=== PATIENT | female | born 1955 | race American Indian/Alaskan Native ===

== ENCOUNTER 2017-08-01 20:03 | Observation (INO) | payer MEDICARE, MEDICAID, BC ==
[2017-08-01] MEDS ORDERED: Prochlorperazine 10 MG/2 ML SDV IVPUSH ONE (20:09)
[2017-08-01] MEDS ORDERED: Hydrocortisone Sodium Succinate 100 MG/2 ML SDV IVPUSH ONE (20:12)
[2017-08-01] MEDS ORDERED: Sodium Chloride 0.9% 1,000 ML IV SCH ×2 (22:15→23:06)
--- NOTE | 2017-08-01 22:45 | EDM.PDOC ---
ED HPI GENERAL MEDICAL PROBLEM - General Chief Complaint: Neurological Problem Stated Complaint: ILLNESS Time Seen by Provider: 08/01/17 20:08 Source of Information: Reports: Patient History Limitations: Reports: Physical Impairment - History of Present Illness INITIAL COMMENTS - FREE TEXT/NARRATIVE: This patient arrives by EMS complaining of nausea and vomiting. She has a history of vertigo. She said that it home she suddenly became nauseated and began vomiting. Initially she told me that she was not having a spinning sensation. She took 2 meclizine tablets and that didn't really seem to help. She was given IV Zofran by EMS and that also didn't seem to help. She also complained of left upper quadrant abdominal pain for about 3 weeks. It seems to come and go. She's not having it right now. In the past she took omeprazole for this. She did mention that a long time ago she was hospitalized for her severe anemia. - Related Data Allergies Allergy/AdvReac Type Severity Reaction Status Date / Time No Known Allergies Allergy Verified 11/30/14 23:09 Home Meds: Home Meds Folic Acid 1 tab PO DAILY 11/30/14 [History] Methotrexate/PF [Methotrexate 250 MG/10 ML Vial] 1 injection IM ASDIRECTED 11/30 [History] oxyCODONE HCl/Acetaminophen [Percocet 10-325 MG] 1 - 2 tab PO Q6H PRN 11/30/14 [ History] predniSONE 5 mg PO DAILY 11/30/14 [History] Past Medical History Musculoskeletal History: Reports: Back Pain, Chronic Neurological History: Reports: Vertigo - Past Surgical History GI Surgical History: Reports: Appendectomy Social & Family History - Tobacco Use Smoking Status *Q: Never Smoker - Alcohol Use Days Per Week of Alcohol Use: 0 - Recreational Drug Use Recreational Drug Use: No ED ROS GENERAL - Review of Systems Review Of Systems: ROS reveals no pertinent complaints other than HPI. ( Initially unable to obtain review of systems due to severe vomiting) ED EXAM, GENERAL - Physical Exam Exam: See Below Exam Limited By: No Limitations General Appearance: Alert, WD/WN, Severe Distress (This patient is having forceful very frequent dry heaves.) Eye Exam: Bilateral Eye: Normal Inspection, Nystagmus (There is no evidence of nystagmus) Ears: Normal TMs (No obvious bulging of the TMs. A little bit difficult to see due to some dried flaky cerumen) Nose: Normal Inspection Throat/Mouth: Normal Inspection, Normal Oropharynx Head: Atraumatic Neck: Normal Inspection Respiratory/Chest: No Respiratory Distress, Lungs Clear Cardiovascular: Regular Rate, Rhythm, No Murmur GI/Abdominal: Soft, Non-Tender Back Exam: Normal Inspection Extremities: Normal Inspection Neurological: Alert, Oriented, CN II-XII Intact, Normal Cognition, No Motor/ Sensory Deficits Psychiatric: Normal Affect Skin Exam: Warm, Dry, Intact Course - Vital Signs Last Recorded V/S: Last Vital Signs Temp 36.4 C 08/01/17 21:37 Pulse 67 08/01/17 21:37 Resp 16 08/01/17 21:37 BP 157/89 H 08/01/17 21:37 Pulse Ox 99 08/01/17 21:37 - Orders/Labs/Meds Orders: Active Orders 24 hr Category Date Time Status EKG Documentation Completion [RC] ASDIRECTED Care 08/01/17 20:09 Active Chest 1V Frontal [CR] Urgent Exams 08/01/17 20:13 Taken CULTURE BLOOD [BC] Urgent Lab 08/01/17 20:20 Received CULTURE BLOOD [BC] Urgent Lab 08/01/17 20:32 Received Sodium Chloride 0.9% [Normal Saline] 1,000 ml Med 08/01/17 22:15 Active IV ASDIRECTED Blood Culture x2 Reflex Set [OM.PC] Urgent Oth 08/01/17 20:13 Ordered EKG 12 Lead [EK] Urgent Ther 08/01/17 20:09 Ordered Medication Orders Sodium Chloride (Normal Saline) 1,000 mls @ 999 mls/hr IV ASDIRECTED [facility] Last Admin: 08/01/17 22:17 Dose: 999 mls/hr Labs: Laboratory Tests 08/01/17 08/01/17 08/01/17 Range/Units 20:21 20:21 20:21 WBC 6.7 (4.5-11.0) K/uL RBC 4.47 (3.30-5.50) M/uL Hgb 12.8 (12.0-15.0) g/dL Hct 38.5 (36.0-48.0) % MCV 86 (80-98) fL MCH 29 (27-31) pg MCHC 33 (32-36) % Plt Count 325 (150-400) K/uL Neut % (Auto) 65 (36-66) % Lymph % (Auto) 28 (24-44) % [place] % (Auto) 6 (2-6) % Eos % (Auto) 1 L (2-4) % Baso % (Auto) 0 (0-1) % Sodium 140 (140-148) mmol/L Potassium 3.3 L (3.6-5.2) mmol/L Chloride 104 (100-108) mmol/L Carbon Dioxide 23 (21-32) mmol/L Anion Gap 16.3 H (5.0-14.0) mmol/L BUN 16 (7-18) mg/dL Creatinine 0.7 (0.6-1.0) mg/dL Est Cr Clr Drug Dosing TNP Estimated GFR (MDRD) > 60 (>60) Glucose 133 H (74-106) mg/dL Lactic Acid 3.8 H (0.4-2.0) mmol/L Calcium 8.6 (8.5-10.1) mg/dL Total Bilirubin 0.3 (0.2-1.0) mg/dL AST 20 (15-37) U/L ALT 17 (12-78) U/L Alkaline Phosphatase 88 (46-116) U/L Troponin I (0.000-0.056) ng/mL Total Protein 7.4 (6.4-8.2) g/dL Albumin 3.3 L (3.4-5.0) g/dL Globulin 4.1 H (2.3-3.5) g/dL Albumin/Globulin Ratio 0.8 L (1.2-2.2) Amylase (25-115) U/L Lipase (73-393) U/L Urine Color Urine Appearance Urine pH (4.5-8.0) Ur Specific [place] (1.008-1.030) Urine Protein (NEGATIVE) mg/dL Urine Glucose (UA) (NEGATIVE) mg/dL Urine Ketones (NEGATIVE) mg/dL Urine Occult Blood (NEGATIVE) Urine Nitrite (NEGATIVE) Urine Bilirubin (NEGATIVE) Urine Urobilinogen (NORMAL) mg/dL Ur Leukocyte Esterase (NEGATIVE) Urine RBC (0-5) Urine WBC (0-5) Ur Epithelial Cells Amorphous Sediment Urine Bacteria Urine Mucus 08/01/17 08/01/17 08/01/17 Range/Units 20:21 21:01 22:07 WBC (4.5-11.0) K/uL RBC (3.30-5.50) M/uL Hgb (12.0-15.0) g/dL Hct (36.0-48.0) % MCV (80-98) fL MCH (27-31) pg MCHC (32-36) % Plt Count (150-400) K/uL Neut % (Auto) (36-66) % Lymph % (Auto) (24-44) % [place] % (Auto) (2-6) % Eos % (Auto) (2-4) % Baso % (Auto) (0-1) % Sodium (140-148) mmol/L Potassium (3.6-5.2) mmol/L Chloride (100-108) mmol/L Carbon Dioxide (21-32) mmol/L Anion Gap (5.0-14.0) mmol/L BUN (7-18) mg/dL Creatinine (0.6-1.0) mg/dL Est Cr Clr Drug Dosing Estimated GFR (MDRD) (>60) Glucose (74-106) mg/dL Lactic Acid (0.4-2.0) mmol/L Calcium (8.5-10.1) mg/dL Total Bilirubin (0.2-1.0) mg/dL AST (15-37) U/L ALT (12-78) U/L Alkaline Phosphatase (46-116) U/L Troponin I < 0.017 (0.000-0.056) ng/mL Total Protein (6.4-8.2) g/dL Albumin (3.4-5.0) g/dL Globulin (2.3-3.5) g/dL Albumin/Globulin Ratio (1.2-2.2) Amylase (25-115) U/L Lipase 144 (73-393) U/L Urine Color Yellow Urine Appearance Clear Urine pH 7.0 (4.5-8.0) Ur Specific [place] 1.010 (1.008-1.030) Urine Protein Negative (NEGATIVE) mg/dL Urine Glucose (UA) Normal (NEGATIVE) mg/dL Urine Ketones 15 H (NEGATIVE) mg/dL Urine Occult Blood Negative (NEGATIVE) Urine Nitrite Negative (NEGATIVE) Urine Bilirubin Negative (NEGATIVE) Urine Urobilinogen Normal (NORMAL) mg/dL Ur Leukocyte Esterase Negative (NEGATIVE) Urine RBC Not seen (0-5) Urine WBC 0-5 (0-5) Ur Epithelial Cells Few Amorphous Sediment Not seen Urine Bacteria Few Urine Mucus Rare 08/01/17 Range/Units 22:08 WBC (4.5-11.0) K/uL RBC (3.30-5.50) M/uL Hgb (12.0-15.0) g/dL Hct (36.0-48.0) % MCV (80-98) fL MCH (27-31) pg MCHC (32-36) % Plt Count (150-400) K/uL Neut % (Auto) (36-66) % Lymph % (Auto) (24-44) % [place] % (Auto) (2-6) % Eos % (Auto) (2-4) % Baso % (Auto) (0-1) % Sodium (140-148) mmol/L Potassium (3.6-5.2) mmol/L Chloride (100-108) mmol/L Carbon Dioxide (21-32) mmol/L Anion Gap (5.0-14.0) mmol/L BUN (7-18) mg/dL Creatinine (0.6-1.0) mg/dL Est Cr Clr Drug Dosing Estimated GFR (MDRD) (>60) Glucose (74-106) mg/dL Lactic Acid (0.4-2.0) mmol/L Calcium (8.5-10.1) mg/dL Total Bilirubin (0.2-1.0) mg/dL AST (15-37) U/L ALT (12-78) U/L Alkaline Phosphatase (46-116) U/L Troponin I (0.000-0.056) ng/mL Total Protein (6.4-8.2) g/dL Albumin (3.4-5.0) g/dL Globulin (2.3-3.5) g/dL Albumin/Globulin Ratio (1.2-2.2) Amylase 49 (25-115) U/L Lipase (73-393) U/L Urine Color Urine Appearance Urine pH (4.5-8.0) Ur Specific [place] (1.008-1.030) Urine Protein (NEGATIVE) mg/dL Urine Glucose (UA) (NEGATIVE) mg/dL Urine Ketones (NEGATIVE) mg/dL Urine Occult Blood (NEGATIVE) Urine Nitrite (NEGATIVE) Urine Bilirubin (NEGATIVE) Urine Urobilinogen (NORMAL) mg/dL Ur Leukocyte Esterase (NEGATIVE) Urine RBC (0-5) Urine WBC (0-5) Ur Epithelial Cells Amorphous Sediment Urine Bacteria Urine Mucus Meds: Medications Generic Name Dose Route Start Last Admin Trade Name Freq PRN Reason Stop Dose Admin Sodium Chloride 1,000 mls @ 999 mls/hr 08/01/17 22:15 08/01/17 22:17 Normal Saline IV 999 mls/hr ASDIRECTED ROB Administration Discontinued Medications Generic Name Dose Route Start Last Admin Trade Name Freq PRN Reason Stop Dose Admin Hydrocortisone Sodium Succinate 100 mg 08/01/17 20:12 08/01/17 20:30 Solu-Cortef IVPUSH 08/01/17 20:13 100 mg ONETIME ONE Administration Prochlorperazine Edisylate 5 mg 08/01/17 20:09 08/01/17 20:30 Compazine IVPUSH 08/01/17 20:10 5 mg ONETIME ONE Administration - Radiology Interpretation Free Text/Narrative:: Chest x-ray is suspicious for right lower lobe pneumonia and it is been sent to radiology for an over read - Re-Assessments/Exams Free Text/Narrative Re-Assessment/Exam: 08/01/17 22:44 This patient arrived with an IV established. She had already been given Zofran that didn't help so I gave Compazine 5 mg IV and this did give her some relief. Free Text/Narrative Re-Assessment/Exam: 08/01/17 22:45 this patient feels much better however labs give some indication of possible sepsis with a elevated lactic acid. Discussed with Dr. Benitez and this patient will be admitted for observation Bernie Escamilla is here in the emergency department to admit her Departure - Departure Time of Disposition: 22:46 Disposition: Admitted As Inpatient 68 Condition: Fair Clinical Impression: Vomiting, Sepsis - Discharge Information Referrals: PCP,None [Primary Care Provider] - - My Orders Last 24 Hours: My Active Orders 08/01/17 20:09 EKG Documentation Completion [RC] ASDIRECTED EKG 12 Lead [EK] Urgent 08/01/17 20:13 Chest 1V Frontal [CR] Urgent Blood Culture x2 Reflex Set [OM.PC] Urgent 08/01/17 20:20 CULTURE BLOOD [BC] Urgent 08/01/17 20:32 CULTURE BLOOD [BC] Urgent - Assessment/Plan Last 24 Hours: My Active Orders 08/01/17 20:09 EKG Documentation Completion [RC] ASDIRECTED EKG 12 Lead [EK] Urgent 08/01/17 20:13 Chest 1V Frontal [CR] Urgent Blood Culture x2 Reflex Set [OM.PC] Urgent 08/01/17 20:20 CULTURE BLOOD [BC] Urgent 08/01/17 20:32 CULTURE BLOOD [BC] Urgent
[2017-08-01] MEDS ORDERED: Zolpidem 5 MG Tab PO PRN (23:06)
[2017-08-01] MEDS ORDERED: Azithromycin 500 MG in Sodium Chloride 0.9% 250 ML IV ONE (23:06)
[2017-08-01] MEDS ORDERED: Docusate Sodium 100 MG Cap PO PRN (23:06)
[2017-08-01] MEDS ORDERED: Bisacodyl 5 MG Tab PO PRN (23:06)
[2017-08-01] MEDS ORDERED: Morphine 2 MG/ML Syringe IVPUSH PRN (23:06)
[2017-08-01] MEDS ORDERED: Albuterol/Ipratropium 3.0-0.5 MG/3 ML Neb Soln NEB PRN (23:06)
[2017-08-01] MEDS ORDERED: Ondansetron 4 MG Tab.DIS PO PRN (23:06)
[2017-08-01] MEDS ORDERED: LORazepam 2 MG/ML MDV IV PRN (23:06)
[2017-08-01] MEDS ORDERED: Albuterol 0.083% 2.5 MG/3 ML Neb Soln NEB PRN (23:06)
[2017-08-01] MEDS ORDERED: Acetaminophen 325 MG Tab PO PRN (23:06)
--- NOTE | 2017-08-01 23:33 | PCM.HP ---
H&P History of Present Illness - General Admit Problem/Dx: Admission Diagnosis/Problem Admission Diagnosis/Problem Sepsis Source of Information: Patient, RN Notes Reviewed - History of Present Illness Initial Comments - Free Text/Narative: This patient arrives by EMS complaining of nausea and vomiting. She has a history of vertigo. She said that it home she suddenly became nauseated and began vomiting. Initially she told me that she was not having a spinning sensation. She took 2 meclizine tablets and that didn't really seem to help. She was given IV Zofran by EMS and that also didn't seem to help. She also complained of left upper quadrant abdominal pain for about 3 weeks. It seems to come and go. She's not having it right now. In the past she took omeprazole for this. She did mention that a long time ago she was hospitalized for her severe anemia. Onset of Symptoms: Reports: Sudden Duration of Symptoms: Reports: Hour(s): Location: Reports: Generalized Severity: Moderate Improves with: Reports: None Worsens with: Reports: None Associated Symptoms: Reports: Nausea/Vomiting - Related Data Allergies/Adverse Reactions: Allergies Allergy/AdvReac Type Severity Reaction Status Date / Time No Known Allergies Allergy Verified 11/30/14 23:09 Home Medications: Home Meds oxyCODONE HCl/Acetaminophen [Percocet 10-325 MG] 1 - 2 tab PO Q6H PRN 11/30/14 [ History] predniSONE 5 mg PO DAILY 11/30/14 [History] Past Medical History Musculoskeletal History: Reports: Back Pain, Chronic, Other (See Below) Other Musculoskeletal History: spinal fusion a few years ago Neurological History: Reports: Vertigo - Infectious Disease History Infectious Disease History: Reports: Chicken Pox - Past Surgical History GI Surgical History: Reports: Appendectomy Social & Family History - Family History Family Medical History: Noncontributory - Tobacco Use Smoking Status *Q: Former Smoker Years of Tobacco use: 1 Used Tobacco, but Quit: Yes Month Tobacco Last Used: 40 years ago Second Hand Smoke Exposure: No - Caffeine Use Caffeine Use: Reports: None - Alcohol Use Days Per Week of Alcohol Use: 0 - Recreational Drug Use Recreational Drug Use: No - Living Situation & Occupation Living situation: Reports: (lives with in [place], [place]. , have 2 grown children, raising 5 Grandchildren and 1 Great-grandchild.) H&P Review of Systems - Review of Systems: Review Of Systems: See Below General: Reports: Other (had active vomiting during ER evaluation, resolved prior to admission to hospital) HEENT: Reports: No Symptoms Pulmonary: Reports: No Symptoms Cardiovascular: Reports: No Symptoms Gastrointestinal: Reports: No Symptoms Genitourinary: Reports: No Symptoms Musculoskeletal: Reports: Other (chronic pain from Rheumatoid Arthritis) Skin: Reports: No Symptoms Psychiatric: Reports: No Symptoms Neurological: Reports: No Symptoms Hematologic/Lymphatic: Reports: No Symptoms Immunologic: Reports: No Symptoms Exam - Exam Exam: See Below - Vital Signs Vital Signs: Last Vital Signs Temp 36.4 C 08/01/17 23:09 Pulse 63 08/01/17 23:09 Resp 16 08/01/17 23:09 BP 137/58 L 08/01/17 23:09 Pulse Ox 91 L 08/01/17 23:09 Weight: 61.689 kg - Exam General: Alert, Oriented, 4 HEENT: PERRLA, Hearing Intact, Mucosa Moist & [place], Nares Patent, Normal Nasal Septum, Posterior Pharynx Clear, Conjunctiva Clear, EOMI, EACs Clear, TMs Clear Neck: Supple, Trachea Midline, 2 Lungs: Clear to Auscultation, Normal Respiratory Effort Cardiovascular: Regular Rate, Regular Rhythm GI/Abdominal Exam: Normal Bowel Sounds, Soft, Non-Tender, No Organomegaly, No Distention, No Abnormal Bruit, No Mass, Pelvis Stable (Female) Exam: Deferred Rectal (Female) Exam: Deferred Back Exam: Normal Inspection, Full Range of Motion, NT Extremities: Normal Range of Motion, Non-Tender, No Pedal Edema, Normal Capillary Refill, Other (finger deformities secondary to RA) Peripheral Pulses: 2+: Radial (L), Radial (R) Skin: Warm, Dry, Intact Neurological: Cranial Nerves Intact, Reflexes Equal Bilateral Neuro Extensive - Mental Status: Alert, Oriented x3, Normal Mood/Affect, Normal Cognition Neuro Extensive - Motor, Sensory, Reflexes: CN II-XII Intact, Normal Gait, Normal Reflexes Psychiatric: Alert, Normal Affect, Normal Mood - Patient Data Lab Results Last 24 hrs: Laboratory Results - last 24 hr 08/01/17 Range/Units 23:06 C-Reactive Protein 0.58 H (0.0-0.3) mg/dL Result Diagrams: 08/01/17 20:21 08/01/17 20:21 *Q Meaningful Use (ADM) - VTE *Q VTE Criteria *Q: - Stroke *Q Stroke Criteria *Q: - AMI *Q AMI Criteria *Q: - Problem List (1) Sepsis SNOMED Code(s): 87076502 ICD Code: A41.9 - SEPSIS, UNSPECIFIED ORGANISM Status: Acute Priority: High Current Visit: Yes Qualifiers: Sepsis type: sepsis due to unspecified organism Qualified Code(s): A41.9 - Sepsis, unspecified organism (2) Hypokalemia SNOMED Code(s): 37569060 ICD Code: E87.6 - HYPOKALEMIA Status: Acute Priority: Medium Current Visit: Yes Problem List Initiated/Reviewed/Updated: Yes Orders Last 24hrs: Active Orders 24 hr Category Date Time Status Patient Status [ADT] Routine ADT 08/01/17 23:06 Active Ambulate [RC] QID Care 08/01/17 23:06 Active Intake and Output [RC] QSHIFT Care 08/01/17 23:06 Active May Shower [RC] ASDIRECTED Care 08/01/17 23:06 Active Oxygen Therapy [RC] PRN Care 08/01/17 23:06 Active RT Aerosol Therapy [RC] ASDIRECTED Care 08/01/17 23:06 Active Up ad [place]anca [RC] ASDIRECTED Care 08/01/17 23:06 Active VTE/DVT Education [RC] Per Unit Routine Care 08/01/17 23:06 Active Vital Signs [RC] Q4H Care 08/01/17 23:06 Active Regular Diet [DIET] Diet 08/01/17 Breakfast Active BASIC METABOLIC PANEL,BMP [CHEM] AM Lab 08/02/17 05:11 Ordered C-REACTIVE PROTEIN [CHEM] AM Lab 08/02/17 05:11 Ordered CBC WITH AUTO DIFF [HEME] AM Lab 08/02/17 05:11 Ordered LACTIC ACID [CHEM] Stat Lab 08/02/17 02:10 Ordered Acetaminophen [Tylenol] Med 08/01/17 23:06 Active 650 mg PO Q4H PRN Acetaminophen/oxyCODONE [Percocet 325-10 MG] Med 08/01/17 23:06 Active 1 - 2 tab PO Q6H PRN Albuterol [Proventil Neb Soln] Med 08/01/17 23:06 Active 2.5 mg NEB Q4H PRN Albuterol/Ipratropium [DuoNeb 3.0-0.5 MG/3 ML] Med 08/01/17 23:06 Active 3 ml NEB QID PRN Azithromycin [Zithromax] 500 mg Med 08/01/17 23:06 Active Sodium Chloride 0.9% [Normal Saline] 250 ml IV ONETIME Bisacodyl [Dulcolax] Med 08/01/17 23:06 Active 5 mg PO DAILY PRN Docusate Sodium [Colace] Med 08/01/17 23:06 Active 100 mg PO BID PRN LORazepam [Ativan] Med 08/01/17 23:06 Active 1 mg IV Q6H PRN Morphine Med 08/01/17 23:06 Active 2 mg IVPUSH Q2H PRN Ondansetron [Zofran ODT] Med 08/01/17 23:06 Active 4 mg PO Q6H PRN Pantoprazole [ProTONIX IV] Med 08/02/17 09:00 Active 40 mg IV DAILY Sodium Chloride 0.9% [Normal Saline] 1,000 ml Med 08/01/17 23:06 Active IV ASDIRECTED Sodium Chloride 0.9% [Normal Saline] 1,000 ml Med 08/01/17 23:06 Active IV ASDIRECTED Zolpidem [Ambien] Med 08/01/17 23:06 Active 5 mg PO BEDTIME PRN cefTRIAXone [Rocephin] 1 gm Med 08/02/17 00:00 Active Sodium Chloride 0.9% [Normal Saline] 50 ml IV Q24H predniSONE Med 08/02/17 09:00 Active 5 mg PO DAILY Blood Culture x2 Reflex Set [OM.PC] Urgent Oth 08/01/17 23:06 Ordered Resuscitation Status Routine Resus Stat 08/01/17 22:33 Ordered Medication Orders Acetaminophen (Tylenol) 650 mg PO Q4H PRN PRN Reason: Pain (Mild 1-3)/fever Albuterol (Proventil Neb Soln) 2.5 mg NEB Q4H PRN PRN Reason: Shortness Of Breath/wheezing Albuterol/Ipratropium (Duoneb 3.0-0.5 Mg/3 Ml) 3 ml NEB QID PRN PRN Reason: Shortness Of Breath/wheezing Bisacodyl (Dulcolax) 5 mg PO DAILY PRN PRN Reason: Constipation Docusate Sodium (Colace) 100 mg PO BID PRN PRN Reason: Constipation Sodium Chloride (Normal Saline) 1,000 mls @ 999 mls/hr IV ASDIRECTED [facility] Last Admin: 08/01/17 22:17 Dose: 999 mls/hr Azithromycin 500 mg/ Sodium (Chloride) 250 mls @ 250 mls/hr IV ONETIME ONE Stop: 08/02/17 00:05 Ceftriaxone Sodium 1 gm/ (Sodium Chloride) 50 mls @ 100 mls/hr IV Q24H ROB Sodium Chloride (Normal Saline) 1,000 mls @ 999 mls/hr IV ASDIRECTED [facility] Stop: 08/02/17 00:07 Sodium Chloride (Normal Saline) 1,000 mls @ 125 mls/hr IV ASDIRECTED [facility] Lorazepam (Ativan) 1 mg IV Q6H PRN PRN Reason: Nausea/Vomiting Morphine Sulfate (Morphine) 2 mg IVPUSH Q2H PRN PRN Reason: Pain (severe 7-10) Ondansetron HCl (Zofran Odt) 4 mg PO Q6H PRN PRN Reason: Nausea able to take PO Oxycodone/Acetaminophen (Percocet 325-10 Mg) 1 - 2 tab PO Q6H PRN PRN Reason: Pain Pantoprazole Sodium (Protonix Iv) 40 mg IV DAILY [facility] Prednisone (Prednisone) 5 mg PO DAILY [facility] Zolpidem Tartrate (Ambien) 5 mg PO BEDTIME PRN PRN Reason: Sleep Assessment/Plan Comment:: ASSESSMENT / PLAN - This patient arrives by EMS complaining of nausea and vomiting. She has a history of vertigo. She said that it home she suddenly became nauseated and began vomiting. Initially she told me that she was not having a spinning sensation. She took 2 meclizine tablets and that didn't really seem to help. She was given IV Zofran by EMS and that also didn't seem to help. She also complained of left upper quadrant abdominal pain for about 3 weeks. It seems to come and go. She's not having it right now. In the past she took omeprazole for this. She did mention that a long time ago she was hospitalized for her severe anemia. ER course: Chest x-ray is suspicious for right lower lobe pneumonia and it is been sent to radiology for an over read IV fluids Normal Saline. given Zofran that didn't help, then Compazine 5 mg IV and this did give her some relief. 08/01/17 22:45 this patient feels much better however labs give some indication of possible sepsis with a elevated lactic acid. Discussed with Dr. Benitez and this patient will be admitted for observation Bernie Gupta is here in the emergency department to admit her -Admit to [address] [place] [address] for further monitoring Plan Sepsis, probable Pneumonia -IV Fluids for rehydration NS at 125 mL per hour -IV Antibiotic; Rocephin 1 gram IV every 24 hours, IV Zithromax 500 mg every 24 hours -albuterol nebulizer every 4 hours as needed for wheezing and cough -Duo neb nebulize every 6 hours -Advise to notify nurses of any chest pain or other symptoms -blood cultures x2 pending -And a.m. labs: CBC, BMP, lactic acid Hypokalemia -Potassium 20 meq IV -Potassium 20 meq in am Maintenance issues -Orders home meds: -Nutrition: regular diet -Severino catheter not indicated at this time -DVT: SCD -PPI; IV Protonix 40mg daily CODE STATUS: Full Admission status: Admit to Observation -I expect this patient to stay less than 24 hours, not to exceed 96 hours for evaluation and management of this problem. Disposition: home Primary care provider: Dr. Brown Hospitalist: Dr. Benitez
[2017-08-01] MEDS: Acetaminophen/oxyCODONE 325-10 MG Tab PO PRN (23:40)
[2017-08-01] MEDS ORDERED: Potassium Chloride 20 MEQ in Premix Bag 1 BAG IV ONE (23:58)
[2017-08-02] MEDS ORDERED: cefTRIAXone 1 GM in Sodium Chloride 0.9% 50 ML IV SCH ×2
[2017-08-02] MEDS: Sodium Chloride 0.9% 1,000 ML IV SCH ×2 (02:16→10:41)
[2017-08-02] MEDS: Acetaminophen/oxyCODONE 325-10 MG Tab PO PRN (06:11)
[2017-08-02 07:51] VITALS: BP 136/50
[2017-08-02] MEDS ORDERED: Potassium Chloride 20 MEQ Tab.ER PO SCH (09:00)
[2017-08-02] MEDS ORDERED: Pantoprazole 40 MG Vial IV SCH (09:00)
[2017-08-02] MEDS ORDERED: predniSONE 5 MG Tab PO SCH (09:00)
--- NOTE | 2017-08-02 11:12 | PCM.DCSUM1 ---
Discharge Summary - Hospital Course Brief History: 62-year-old female with history of vertigo who presented withvomiting and shortness of breath after an episode of vertigo. She is admitted for observation and hydration with an elevated lactic acid level. - Discharge Data Discharge Date: 08/02/17 Discharge Disposition: Home, Self-Care 01 Condition: Good - Discharge Diagnosis/Problem(s) (1) BPPV (benign paroxysmal positional vertigo) SNOMED Code(s): 002946830 ICD Code: H81.10 - BENIGN PAROXYSMAL VERTIGO, UNSPECIFIED EAR Status: Acute Current Visit: Yes Qualifiers: Laterality: unspecified laterality Qualified Code(s): H81.10 - Benign paroxysmal vertigo, unspecified ear (2) Vomiting SNOMED Code(s): 320925260 ICD Code: R11.10 - VOMITING, UNSPECIFIED Status: Acute Current Visit: Yes Qualifiers: Vomiting type: unspecified Vomiting Intractability: non-intractable Nausea presence: with nausea Qualified Code(s): R11.2 - Nausea with vomiting, unspecified - Patient Summary/Data Hospital Course: Alona presented last night with nausea and vomiting as well as shortness of breath. Symptoms started after what sounds like an episode of vertigo. She felt better upon arrival to the emergency room but was found to have an elevated lactic acid. She was admitted for hydration and observation. Overnight she felt well and did not have any vomiting or vertigo. The morning after admission she feels nearly back to her usual self other than mild fatigue. She does not have nausea and tolerated breakfast. Lactic acid level has normalized. She did mention some concerns about a mass on her left chest that this is likely a lipoma. It has been worked up previously and no concern was found. I did encourage her to check with the primary care doctor if she has additional concerns and a repeat ultrasound could be considered. She feels well and would like to go home at this time. I believe she is safe for outpatient management. I encouraged her to do her best to stay hydrated and continue her meclizine as needed if she has episodes of vertigo. She will follow-up if symptoms do not continue to get better or they get worse. - Patient Instructions Diet: Regular Diet as Tolerated Activity: As Tolerated Showering/Bathing: May Shower Notify Provider of: Fever, Increased Pain, Nausea and/or Vomiting Other/Special Instructions: 1. You were in the hospital for observation after an episode of vomiting and abnormal blood test in the emergency room (lactic acid). Your lactic acid level has normalized with hydration. I suspect the elevated level was a result of dehydration caused by your significant vomiting which has resolved. Continue your usual management for vertigo as previously prescribed. 2. Continue your usual medications as previously prescribed. 3. I suspect the subcutaneous mass on left chest is a lipoma. You could consider having this further evaluated by her primary care physician with a repeat ultrasound test. 4. Seek medical attention if you have fever greater than 101, persistent vomiting or if you develop chest pain/pressure or shortness of breath. - Discharge Plan Home Medications: Home Meds oxyCODONE HCl/Acetaminophen [Percocet 10-325 MG] 1 - 2 tab PO Q6H PRN 11/30/14 [ History] predniSONE 5 mg PO DAILY 11/30/14 [History] Patient Handouts: Vertigo, [id number], Sepsis, Adult, Rehydration, Adult Referrals: PCP,None [Primary Care Provider] - (f/u with your primary care doctor if symptoms do not continue to improve) - Discharge Summary/Plan Comment DC Time >30 min.: No (25) - Patient Data Vitals - Most Recent: Last Vital Signs Temp 36.4 C 08/02/17 07:50 Pulse 72 08/02/17 07:50 Resp 16 08/02/17 07:50 BP 136/50 L 08/02/17 07:50 Pulse Ox 96 08/02/17 07:50 Weight - Most Recent: 61.689 kg I&O - Last 24 hours: Intake & Output 08/01/17 08/02/17 08/02/17 22:59 06:59 14:59 Intake Total 1761 Output Total 800 Balance 961 Lab Results - Last 24 hrs: Laboratory Results - last 24 hr 08/01/17 08/02/17 08/02/17 Range/Units 23:06 02:13 02:13 WBC 5.6 (4.5-11.0) K/uL RBC 4.14 (3.30-5.50) M/uL Hgb 11.7 L (12.0-15.0) g/dL Hct 36.1 (36.0-48.0) % MCV 87 (80-98) fL MCH 28 (27-31) pg MCHC 32 (32-36) % Plt Count 276 (150-400) K/uL Neut % (Auto) 84 H (36-66) % Lymph % (Auto) 13 L (24-44) % [place] % (Auto) 2 (2-6) % Eos % (Auto) 0 L (2-4) % Baso % (Auto) 0 (0-1) % Sodium (140-148) mmol/L Potassium (3.6-5.2) mmol/L Chloride (100-108) mmol/L Carbon Dioxide (21-32) mmol/L Anion Gap (5.0-14.0) mmol/L BUN (7-18) mg/dL Creatinine (0.6-1.0) mg/dL Est Cr Clr Drug Dosing mL/min Estimated GFR (MDRD) (>60) Glucose (74-106) mg/dL Lactic Acid 0.9 (0.4-2.0) mmol/L Calcium (8.5-10.1) mg/dL C-Reactive Protein 0.58 H (0.0-0.3) mg/dL 08/02/17 Range/Units 02:13 WBC (4.5-11.0) K/uL RBC (3.30-5.50) M/uL Hgb (12.0-15.0) g/dL Hct (36.0-48.0) % MCV (80-98) fL MCH (27-31) pg MCHC (32-36) % Plt Count (150-400) K/uL Neut % (Auto) (36-66) % Lymph % (Auto) (24-44) % [place] % (Auto) (2-6) % Eos % (Auto) (2-4) % Baso % (Auto) (0-1) % Sodium 144 (140-148) mmol/L Potassium 3.8 (3.6-5.2) mmol/L Chloride 111 H (100-108) mmol/L Carbon Dioxide 27 (21-32) mmol/L Anion Gap 9.8 (5.0-14.0) mmol/L BUN 10 (7-18) mg/dL Creatinine 0.6 (0.6-1.0) mg/dL Est Cr Clr Drug Dosing 96.96 mL/min Estimated GFR (MDRD) > 60 (>60) Glucose 134 H (74-106) mg/dL Lactic Acid (0.4-2.0) mmol/L Calcium 8.0 L (8.5-10.1) mg/dL C-Reactive Protein 0.54 H (0.0-0.3) mg/dL Med Orders - Current: Current Medications Acetaminophen (Tylenol) 650 mg PO Q4H PRN PRN Reason: Pain (Mild 1-3)/fever Albuterol (Proventil Neb Soln) 2.5 mg NEB Q4H PRN PRN Reason: Shortness Of Breath/wheezing Albuterol/Ipratropium (Duoneb 3.0-0.5 Mg/3 Ml) 3 ml NEB QID PRN PRN Reason: Shortness Of Breath/wheezing Bisacodyl (Dulcolax) 5 mg PO DAILY PRN PRN Reason: Constipation Docusate Sodium (Colace) 100 mg PO BID PRN PRN Reason: Constipation Ceftriaxone Sodium 1 gm/ (Sodium Chloride) 50 mls @ 100 mls/hr IV Q24H [facility] Last Admin: 08/02/17 00:39 Dose: 100 mls/hr Sodium Chloride (Normal Saline) 1,000 mls @ 125 mls/hr IV ASDIRECTED [facility] Last Admin: 08/02/17 10:41 Dose: 125 mls/hr Lorazepam (Ativan) 1 mg IV Q6H PRN PRN Reason: Nausea/Vomiting Morphine Sulfate (Morphine) 2 mg IVPUSH Q2H PRN PRN Reason: Pain (severe 7-10) Ondansetron HCl (Zofran Odt) 4 mg PO Q6H PRN PRN Reason: Nausea able to take PO Oxycodone/Acetaminophen (Percocet 325-10 Mg) 1 - 2 tab PO Q6H PRN PRN Reason: Pain Last Admin: 08/02/17 06:11 Dose: 2 tab Pantoprazole Sodium (Protonix Iv) 40 mg IV DAILY [facility] Last Admin: 08/02/17 09:18 Dose: 40 mg Potassium Chloride (Klor-Con M20) 20 meq PO DAILY [facility] Last Admin: 08/02/17 09:17 Dose: 20 meq Prednisone (Prednisone) 5 mg PO DAILY [facility] Last Admin: 08/02/17 09:17 Dose: 5 mg Zolpidem Tartrate (Ambien) 5 mg PO BEDTIME PRN PRN Reason: Sleep Discontinued Medications Hydrocortisone Sodium Succinate (Solu-Cortef) 100 mg IVPUSH ONETIME ONE Stop: 08/01/17 20:13 Last Admin: 08/01/17 20:30 Dose: 100 mg Sodium Chloride (Normal Saline) 1,000 mls @ 999 mls/hr IV ASDIRECTED [facility] Last Infusion: 08/01/17 23:18 Dose: Infused Azithromycin 500 mg/ Sodium (Chloride) 250 mls @ 250 mls/hr IV ONETIME ONE Stop: 08/02/17 00:05 Last Admin: 08/01/17 23:37 Dose: 250 mls/hr Sodium Chloride (Normal Saline) 1,000 mls @ 999 mls/hr IV ASDIRECTED [facility] Stop: 08/02/17 00:07 Last Admin: 08/01/17 23:42 Dose: 999 mls/hr Potassium Chloride 20 meq/ (Premix) 100 mls @ 50 mls/hr IV ONETIME ONE Stop: 08/02/17 01:57 Last Admin: 08/02/17 02:15 Dose: 50 mls/hr Lidocaine HCl (Xylocaine-Mpf 1%) Confirm Administered Dose 5 ml .ROUTE .STK-MED ONE Stop: 08/02/17 02:08 Last Admin: 08/02/17 02:16 Dose: 1 ml Prochlorperazine Edisylate (Compazine) 5 mg IVPUSH ONETIME ONE Stop: 08/01/17 20:10 Last Admin: 08/01/17 20:30 Dose: 5 mg - Exam Quality Assessment: Denies: Supplemental Oxygen General: Reports: Alert, Oriented, Cooperative, No Acute Distress Neck: Reports: Supple Lungs: Reports: Normal Respiratory Effort Skin: Reports: Warm, Dry, Other (soft 2 cm slightly rubbery mobile mass left upper medial chest. There is no tenderness or induration) Psy/Mental Status: Reports: Alert, Normal Affect *Q Meaningful Use (DIS) - VTE *Q VTE Criteria *Q: - Stroke *Q Stroke Criteria *Q: - AMI *Q AMI Criteria *Q:
== END 2017-08-02 12:10 | disposition home or self-care (01) ==
LOC: JP.ED 20:03 → JP.MS 22:29
PROVIDERS: ADMIT Internal Medicine; ATTEND Internal Medicine
DX: H81.10 Benign paroxysmal vertigo, unspecified ear (principal); R11.2 Nausea with vomiting, unspecified; A41.9 Sepsis, unspecified organism; E87.6 Hypokalemia; Z79.899 Other long term (current) drug therapy; Z90.49 Acquired absence of other specified parts of digestive tract; Z87.891 Personal history of nicotine dependence
CPT/HCPCS: 36415; 71010; 80048; 80053; 81001; 82150; 83605; 83690; 84484; 85025; 86140; 87040; 87804; 93005; 96361; 96365; 96367; 96375; 99285; A9270; C9113; G0378; J0456; J0696; J0780; J1720; J3480; J7040; J7050; 93010; 96374

== ENCOUNTER 2022-03-24 14:56 | Emergency (ER) | payer MEDICARE, MEDICAID ==
[2022-03-24 15:03] VITALS: BP 177/84; PULSE 83
[2022-03-24] MEDS ORDERED: Aspirin 81 MG Tab.Chew PO ONE (15:13)
[2022-03-24] MEDS ORDERED: Sodium Chloride 0.9% 10 ML Syringe FLUSH PRN (15:13)
[2022-03-24] MEDS ORDERED: Nitroglycerin 0.4 MG Tab.SL SL PRN (15:13)
[2022-03-24] MEDS ORDERED: Morphine 4 MG/ML Syringe IVPUSH PRN (15:13)
[2022-03-24 15:52] LABS: ESTIMATED GFR 96 mL/min (>60); TROPONIN I HIGH SENSITIVITY 13.8 pg/mL (<=60.3)
== END 2022-03-24 17:52 | disposition home or self-care (01) ==
LOC: JP.ED 14:56
DX: R07.89 Other chest pain (principal)
CPT/HCPCS: 36415; 71045; 80053; 83605; 83690; 84484; 85025; 93005; 96374; 99285; A9270; J2270; J3490; 93010; 99282

== ENCOUNTER 2023-08-18 18:06 | Emergency (ER) | payer MEDICARE, MEDICAID ==
[2023-08-18 19:49] LABS: HEMATOCRIT 39.6 % (34.3-46.0); HEMOGLOBIN 13.4 g/dL (11.2-15.5); MEAN CORPUSCULAR HEMOGLOBIN 30.4 pg (31.6-35.5); MEAN CORPUSCULAR HGB CONC 33.8 g/dL (31.6-35.5); MEAN CORPUSCULAR VOLUME 89.8 fL (81.4-99.0); RED BLOOD CELL COUNT 4.41 M/uL (3.77-5.24); WHITE BLOOD CELL COUNT,WBC 5.9 K/uL (3.2-11.0)
[2023-08-18 20:14] LABS: A/G RATIO 0.6 (1.2-2.2); ALANINE AMINOTRANSFERASE,ALT 12 U/L (12-78); ALBUMIN 2.5 g/dL (3.4-5.0); ALKALINE PHOSPHATASE 135 U/L (46-116); ASPARTATE AMNIOTRANSFERASE,AST 24 U/L (15-37); BILIRUBIN TOTAL 0.3 mg/dL (0.2-1.0); BLOOD UREA NITROGEN,BUN 12 mg/dL (7-18); CARBON DIOXIDE,CO2 29 mmol/L (21-32); CHLORIDE,CL 104 mmol/L (100-108); CREATININE 0.9 mg/dL (0.6-1.0); EST CRCL DRUG DOSING (CG) 59.79 mL/min; ESTIMATED GFR 71 mL/min (>60); GLUCOSE RANDOM 115 mg/dL (74-106); PROTEIN TOTAL,TP 6.4 g/dL (6.4-8.2); SODIUM,NA 139 mmol/L (140-148)
[2023-08-18 20:58] VITALS: BP 144/86; PULSE 83
[2023-08-18] MEDS ORDERED: Calcium Carbonate 500 MG Tab.Chew PO ONE (21:01)
== END 2023-08-18 21:38 | disposition home or self-care (01) ==
LOC: JP.ED 18:06
DX: E83.51 Hypocalcemia (principal)
CPT/HCPCS: 36415; 80053; 83605; 85027; 93005; 93010; 99284; 99285; A9270-GY

== ENCOUNTER 2025-06-26 16:02 | Emergency (ER) | payer MEDICAID, MEDICARE ==
[2025-06-26 16:54] LABS: BASOPHILS ABSOLUTE AUTO 0.03 K/uL (0.00-0.10); BASOPHILS PERCENT AUTO 0.2 % (0.1-1.3); EOSINOPHILS ABSOLUTE AUTO 0.04 K/uL (0.00-0.40); EOSINOPHILS PERCENT AUTO 0.3 % (0.0-5.4); IMMATURE GRAN ABSOLUTE AUTO 0.06 K/uL (0.00-0.23); IMMATURE GRAN PERCENT AUTO 0.4 % (0.0-0.7); LYMPHOCYTES ABSOLUTE AUTO 0.87 K/uL (0.8-3.3); LYMPHOCYTES PERCENT AUTO 6.1 % (11.4-47.7); MONOCYTES ABSOLUTE AUTO 0.72 K/uL (0.20-0.90); MONOCYTES PERCENT AUTO 5.0 % (3.3-12.6); NEUTROPHILS ABSOLUTE AUTO 12.54 K/uL (1.0-7.6); NEUTROPHILS PERCENT AUTO 88.0 % (40.0-78.1); PLATELET COUNT,PLT 387 K/uL (130-375); RED BLOOD CELL COUNT 5.73 M/uL (3.77-5.24); WHITE BLOOD CELL COUNT,WBC 14.3 K/uL (3.2-11.0)
[2025-06-26 17:16] LABS: BLOOD UREA NITROGEN,BUN 10.0 mg/dL (7-18); CARBON DIOXIDE,CO2 29.0 mmol/L (21-32); CHLORIDE,CL 103.0 mmol/L (100-108); CREATININE 0.6 mg/dL (0.6-1.0); EST CRCL DRUG DOSING (CG) 87.27 mL/min; ESTIMATED GFR 98.0 mL/min (>60); GLUCOSE RANDOM 143.0 mg/dL (74-106); SODIUM,NA 141.0 mmol/L (140-148); TROPONIN I HIGH SENSITIVITY 15.7 pg/mL (<=60.3)
[2025-06-26 17:19] LABS: POTASSIUM,K 2.7 mmol/L (3.6-5.2)
[2025-06-26] MEDS ORDERED: Sodium Chloride 0.9% 10 ML Syringe FLUSH PRN (17:22)
[2025-06-26] MEDS: Potassium Chloride 20 MEQ Tab.ER PO ONE (17:31)
[2025-06-26] MEDS: Potassium Chloride 20 MEQ in Premix Bag 1 BAG IV ONE (17:31)
[2025-06-26] MEDS: Ketorolac 30 MG/ML SDV IVPUSH ONE (18:35)
[2025-06-26 19:32] VITALS: BP 180/87; PULSE 74
== END 2025-06-26 20:14 | disposition home or self-care (01) ==
LOC: JP.ED 16:02
DX: M79.605 Pain in left leg (principal); E87.6 Hypokalemia; Z79.899 Other long term (current) drug therapy; Z90.49 Acquired absence of other specified parts of digestive tract
CPT/HCPCS: 36415; 80048; 84484; 85025; 96365; 96366; 96372; 96375; 99284; A9270; J1171; J1885; J3480